=== PATIENT | male | born 1940 | race African-American/Black ===

== ENCOUNTER 2021-03-21 14:42 | Emergency (ER) | payer BC, MEDICAID ==
[~2021-03-21] VITALS: Ht 177.8 cm; Wt 74.0 kg
[2021-03-21 16:52] LABS: BASOPHILS % 0.7 % (0.0-2.0); EOSINOPHILS % 5.6 % (0.0-5.0); HEMATOCRIT. 41.8 % (42.0-52.0); HEMOGLOBIN. 15.3 g/dL (14.0-18.0); LYMPHOCYTES % 26.7 % (20.0-50.0); MEAN CORPUSCULAR VOLUME 90.2 fL (80.0-94.0); MONOCYTES % 10.4 % (2.0-8.0); NEUTROPHILS % 56.6 % (40.0-76.0); PLATELET 234 x1000/uL (130-400); RED BLOOD CELL COUNT 4.64 mill/uL (4.7-6.1); RED CELL DISTRIBUTION WIDTH 13.1 % (11.6-14.6)
[2021-03-21 16:57] LABS: CHLORIDE 97 mEq/L (98-107)
[2021-03-21 20:00] VITALS: BP 152/80
== END 2021-03-21 20:07 | disposition home or self-care (01) ==
LOC: ER 14:47
DX: R07.89 Other chest pain (principal); F41.0 Panic disorder [episodic paroxysmal anxiety]; Z20.822 Contact with and (suspected) exposure to COVID-19
CPT/HCPCS: 36415; 71045; 80053; 83880; 84484; 85025; 87426; 93005; 99285

== ENCOUNTER 2024-04-07 14:45 | Emergency (ER) | payer MEDICARE, MEDICAID ==
[~2024-04-07] VITALS: Ht 177.8 cm; Wt 82.0 kg
[2024-04-07 14:47] VITALS: BP 136/61; PULSE 80; RESP 16; TEMP 98.9; O2SAT 99
== END 2024-04-07 18:57 | disposition left against medical advice (07) ==
LOC: ER 14:45
DX: R53.1 Weakness (principal); I10 Essential (primary) hypertension; Z79.899 Other long term (current) drug therapy
CPT/HCPCS: 71045; 99283